=== PATIENT | male | born 1950 | race Caucasian/White ===

== ENCOUNTER → 2017-02-11 | Outpatient (CLI) | payer MEDICARE ==
[~2017-02-11] MED LIST: ALPR.5 PO; ASPI81 PO; FURO1TAB93 PO; POTA20IN3 PO; RAMI2.5 PO; RIVA20 PO
[2017-02-11 13:38] LABS: HEMATOCRIT 36.2 % (39.0-51.0); REVIEW FLAG FINAL
== END ==
LOC: PLAB 11:24
PROVIDERS: ATTEND Family Medicine
DX: D64.9 Anemia, unspecified (principal); I48.91 Unspecified atrial fibrillation
CPT/HCPCS: 36415; 85014; 85018